=== PATIENT | female | born 1960 | race Caucasian/White ===

== ENCOUNTER 2021-09-08 21:13 | Emergency (ER) | payer OTHER ==
[2021-09-08 22:05] VITALS: BP 119/80; PULSE 118; RESP 20
--- NOTE | 2021-09-08 22:43 | XR ---
EXAMINATION TYPE: XR chest 2V DATE OF EXAM: 09/08/2021 COMPARISON: NONE HISTORY: Short of breath TECHNIQUE: 2 views FINDINGS: There is some atelectasis left lung base. Heart and mediastinum are normal. There are no hi lar masses. There is some coarsening of interstitial markings. IMPRESSION: Mild pulmonary interstitial infiltrates. Subsegmental atelectasis left lung base.
[2021-09-08] MEDS ORDERED: ACETAMINOPHEN TAB 325 MG TAB PO STA (23:39)
[2021-09-08] MEDS ORDERED: IBUPROFEN 600 MG TAB PO STA (23:39)
[2021-09-08] MEDS ORDERED: SODIUM CHLORIDE 0.9% 50 ML IVPB ONE (23:45)
[2021-09-09] MEDS ORDERED: CASIRIVIMAB (REGN10933) (EUA) 600 MG, IMDEVIMAB (REGN10987) (EUA) 600 MG in SODIUM CHLO... IVPB ONE ×3
[2021-09-09] MEDS ORDERED: ONDANSETRON 4 MG/2 ML VIAL IVP STA (00:07)
--- NOTE | 2021-09-09 00:54 | ED ---
General Adult HPI - General Chief complaint: Upper Respiratory Infection Stated complaint: covid+, wants infusion Time Seen by Provider: 09/08/21 23:39 Source: patient, RN notes reviewed Mode of arrival: wheelchair Limitations: no limitations - History of Present Illness Initial comments: Patient is a 60-year-old female that presents to the emergency Department stating that she tested positive for Covid yesterday. She notes that she's been having symptoms for about a week. 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 She denied any other issues or complaints at this time. She denied chest pain headache nausea vomiting diarrhea constipation fatigue chills. - Related Data Allergies Allergy/AdvReac Type Severity Reaction Status Date / Time No Known Allergies Allergy Verified 09/08/21 22:05 Review of Systems ROS Statement: Those systems with pertinent positive or pertinent negative responses have been documented in the HPI. ROS Other: All systems not noted in ROS Statement are negative. Past Medical History Past Medical History: Diabetes Mellitus Past Surgical History: No Surgical Hx Reported Smoking Status: Never smoker Past Alcohol Use History: None Reported Past Drug Use History: None Reported General Exam Limitations: no limitations General appearance: alert, in no apparent distress Head exam: Present: atraumatic, normocephalic, normal inspection Eye exam: Present: normal appearance, PERRL, EOMI. Absent: scleral icterus, conjunctival injection, periorbital swelling ENT exam: Present: normal exam, mucous membranes moist Neck exam: Present: normal inspection Respiratory exam: Present: normal lung sounds bilaterally. Absent: respiratory distress, wheezes, rales, rhonchi, stridor Cardiovascular Exam: Present: regular rate, normal rhythm, normal heart sounds. Absent: systolic murmur, diastolic murmur, rubs, gallop, clicks Extremities exam: Present: normal inspection, full ROM, normal capillary refill. Absent: tenderness, pedal edema, joint swelling, calf tenderness Neurological exam: Present: alert, oriented X3 Psychiatric exam: Present: normal affect, normal mood Skin exam: Present: warm, dry, intact, normal color. Absent: rash Course Vital Signs 09/08/21 09/08/21 22:01 23:57 Temperature 103.2 F H 100.9 F H Pulse Rate 118 H Respiratory 20 Rate Blood Pressure 119/80 O2 Sat by Pulse 98 Oximetry Medical Decision Making - Medical Decision Making 60-year-old female Covid-positive. Chest x-ray ordered. Chest x-ray shows mild pulmonary interstitial infiltrates. Patient will undergo monoclonal antibody infusion. Patient is agreeable with discharge home after IV infusion. Case discussed with Dr. Monge, patient discharge home. - Radiology Data Radiology results: report reviewed, image reviewed Chest x-ray: Mild pulmonary interstitial infiltrates. Subsegmental atelectasis left lung base. Disposition Clinical Impression: COVID Disposition: HOME SELF-CARE Condition: Stable Instructions (If sedation given, give patient instructions): Coronavirus Disease 2019 (COVID-19) Additional Instructions: Please return to the Emergency Department if symptoms worsen or any other concerns. Follow-up with primary care 1-2 days. Quarantine per CDC guidelines. Take Tylenol Motrin alternating every 3 hours for fever. Is patient prescribed a controlled substance at d/c from ED?: No Referrals: Odell Lancaster MD [Primary Care Provider] - 1-2 days Time of Disposition: 00:54
[2021-09-09 01:47] VITALS: TEMP 98.6
== END 2021-09-09 01:47 | disposition home or self-care (01) ==
LOC: EC 21:13
DX: U07.1 COVID-19 (principal); E11.9 Type 2 diabetes mellitus without complications
CPT/HCPCS: 71046; 99283; 96365; 96375; J2405; Q0243